=== PATIENT | male | born 1985 | race Two or more races ===

== ENCOUNTER 2017-11-10 11:28 | Emergency (ER) | payer MEDICAID ==
[~2017-11-10] VITALS: Ht 172.7 cm; Wt 99.8 kg
[~2017-11-10 11:28] MED LIST: ALPR0.25
[2017-11-10 12:27] VITALS: BP 137/97
[2017-11-10] MEDS ORDERED: METHOCARBAMOL 500 MG TAB PO ONE (12:45)
[2017-11-10] MEDS ORDERED: IBUPROFEN 800 MG TAB PO ONE (12:45)
== END 2017-11-10 14:46 | disposition home or self-care (01) ==
LOC: ER 11:34
DX: M54.5 Low back pain (principal)
CPT/HCPCS: 72070; 72100

== ENCOUNTER 2018-06-01 09:24 | Emergency (ER) | payer MEDICAID ==
[~2018-06-01] VITALS: Ht 172.7 cm; Wt 109.8 kg
[2018-06-01 09:35] VITALS: BP 138/98
[2018-06-01 10:00] LABS: Urine Bacteria NONE SEEN /hpf (None Seen); Urine Blood 2+ /uL (Negative); Urine Mucus FEW (None Seen); Urine Specific Gravity 1.025 (1.001-1.035); Urine WBC 19 /hpf (0 - 3)
== END 2018-06-01 12:30 | disposition home or self-care (01) ==
LOC: ER 09:24
DX: N39.0 Urinary tract infection, site not specified (principal); M54.5 Low back pain
CPT/HCPCS: 74176; 81001

== ENCOUNTER 2018-11-16 16:10 | Emergency (ER) | payer MEDICAID ==
[~2018-11-16] VITALS: Ht 172.7 cm; Wt 99.8 kg
[2018-11-16 17:14] LABS: Basophils # (auto) 0.1 uL; Eosinophils # (auto) 0.4 uL; Eosinophils % (auto) 4.7 % (0.0-7.0); Lymphocytes # (auto) 2.7 uL; Monocytes # (auto) 0.8 uL; Nucleated Red Blood Cells % 0.1 %
[2018-11-16 17:16] LABS: Basophils % (auto) 0.6 % (0.0-2.0); Hematocrit 53.8 % (41.0-53.0); Hemoglobin 18.4 g/dL (13.5-17.5); Lymphocytes % (auto) 30.7 % (10.0-50.0); Mean Corpuscular Hgb Conc. 34.2 g/dL (32.0-36.0); Mean Corpuscular Volume 90.6 fL (80.0-100.0); Monocytes % (auto) 9.3 % (0.0-12.0); Neutrophils # (auto) 4.9 uL; Neutrophils % (auto) 54.7 % (37.0-80.0); Platelet Count (auto) 261 10^3/uL (140-450); Red Blood Cells 5.94 10^6/uL (4.5-5.90); Red Cell Distribution Width 13.6 % (11.8-14.3); White Blood Cell 8.9 10^3/uL (4.4-10.8)
[2018-11-16 17:23] LABS: Alanine Aminotransferase 273 U/L (16-61); Albumin 4.1 g/dL (3.4-5.0); Anion Gap 10 (5-15); Blood Urea Nitrogen 14 mg/dL (7-18); Calcium 8.5 mg/dL (8.5-10.1); Carbon Dioxide 24 mmol/L (21-32); Chloride 105 mmol/L (98-107); Glucose 146 mg/dL (74-106); Potassium 3.5 mmol/L (3.5-5.1); Sodium 139 mmol/L (136-145)
[2018-11-16 17:28] LABS: Alkaline Phosphatase 113 U/L (45-117); Aspartate Aminotransferase 198 U/L (15-37); BUN/Creatinine Ratio 13.2; Bilirubin, Total 0.5 mg/dL (0.2-1.0); GFR African American 103 mL/min; GFR Non-African American 85 mL/min; Total Protein 8.4 g/dL (6.4-8.2)
[2018-11-16 20:04] VITALS: BP 154/92
== END 2018-11-16 20:08 | disposition home or self-care (01) ==
LOC: ER 16:14
DX: F41.9 Anxiety disorder, unspecified (principal); F12.90 Cannabis use, unspecified, uncomplicated
CPT/HCPCS: 36415; 71046; 80053; 84484; 85025; 93005

== ENCOUNTER 2018-11-19 16:52 | Emergency (ER) | payer MEDICAID, OTHER ==
[~2018-11-19] VITALS: Ht 172.7 cm; Wt 99.8 kg
[2018-11-19 21:00] VITALS: BP 141/94
== END 2018-11-19 22:10 | disposition home or self-care (01) ==
LOC: ER 16:58 → MERGE 16:58 → ER 22:10
DX: F41.9 Anxiety disorder, unspecified (principal); F12.90 Cannabis use, unspecified, uncomplicated

== ENCOUNTER 2019-05-01 16:22 | Emergency (ER) | payer MEDICAID ==
[~2019-05-01] VITALS: Ht 172.7 cm; Wt 108.9 kg
[2019-05-01 16:41] VITALS: BP 125/90
== END 2019-05-01 20:21 | disposition home or self-care (01) ==
LOC: ER 16:22
DX: S69.92XA Unspecified injury of left wrist, hand and finger(s), initial encounter (principal); S89.92XA Unspecified injury of left lower leg, initial encounter; S89.91XA Unspecified injury of right lower leg, initial encounter; Z79.899 Other long term (current) drug therapy; W31.9XXA Contact with unspecified machinery, initial encounter; Y93.89 Activity, other specified; Y92.89 Other specified places as the place of occurrence of the external cause; Y99.0 Civilian activity done for income or pay
CPT/HCPCS: 73100; 73590

== ENCOUNTER 2019-06-28 17:34 | Emergency (ER) | payer MEDICAID ==
[~2019-06-28] VITALS: Ht 172.7 cm; Wt 108.9 kg
[2019-06-28 19:02] LABS: Basophils # (auto) 0.1 uL; Basophils % (auto) 1.2 % (0.0-2.0); Eosinophils # (auto) 0.6 uL; Eosinophils % (auto) 6.7 % (0.0-7.0); Hematocrit 49.6 % (41.0-53.0); Hemoglobin 16.9 g/dL (13.5-17.5); Lymphocytes # (auto) 2.9 uL; Lymphocytes % (auto) 30.2 % (10.0-50.0); Mean Corpuscular Hemoglobin 29.4 pg (28.0-32.0); Mean Corpuscular Hgb Conc. 34.1 g/dL (32.0-36.0); Mean Corpuscular Volume 86.2 fL (80.0-100.0); Monocytes # (auto) 0.9 uL; Monocytes % (auto) 9.8 % (0.0-12.0); Neutrophils % (auto) 52.1 % (37.0-80.0); Nucleated Red Blood Cells % 0.2 %; Platelet Count (auto) 289 10^3/uL (140-450); Red Blood Cells 5.76 10^6/uL (4.5-5.90); Red Cell Distribution Width 14.9 % (11.8-14.3); White Blood Cell 9.5 10^3/uL (4.4-10.8)
[2019-06-28 19:17] LABS: Alanine Aminotransferase 79 U/L (16-61); Albumin 3.7 g/dL (3.4-5.0); Anion Gap 7 (5-15); Aspartate Aminotransferase 54 U/L (15-37); BUN/Creatinine Ratio 13.3; Blood Urea Nitrogen 13 mg/dL (7-18); Calcium 8.3 mg/dL (8.5-10.1); Carbon Dioxide 25 mmol/L (21-32); Chloride 106 mmol/L (98-107); GFR African American 113 mL/min; GFR Non-African American 93 mL/min; Glucose 112 mg/dL (74-106); Potassium 3.8 mmol/L (3.5-5.1); Sodium 138 mmol/L (136-145)
[2019-06-28 19:21] LABS: Alkaline Phosphatase 138 U/L (45-117); Bilirubin, Total 0.4 mg/dL (0.2-1.0); Total Protein 8.2 g/dL (6.4-8.2)
[2019-06-28] MEDS ORDERED: LORazepam 0.5 MG TAB PO ONE (22:00)
[2019-06-28 23:10] VITALS: BP 117/68
== END 2019-06-28 23:30 | disposition home or self-care (01) ==
LOC: ER 17:34
DX: R07.9 Chest pain, unspecified (principal); F41.9 Anxiety disorder, unspecified; F12.10 Cannabis abuse, uncomplicated
CPT/HCPCS: 36415; 71046; 80053; 83880; 84484; 85025; 93005